=== PATIENT | female | born 1990 ===

== ENCOUNTER 2021-11-01 22:55 | Outpatient (CLI) | payer MEDICAID ==
[2021-11-01] MEDS ORDERED: LACTATED RINGERS 500 ML IV ONE (23:07)
[2021-11-01 23:40] LABS: Hematocrit 31.5 % (30.3-42.9); Hemoglobin 11.3 gm/dl (10.1-14.3); Mean Corpuscular HGB Conc 36 % (30-34); Mean Corpuscular Volume 82 fl (79-97); Platelet Count 191 K/mm3 (140-440); Red Blood Count 3.84 M/mm3 (3.65-5.03); Red Cell Distribution Width 13.9 % (13.2-15.2)
[2021-11-01 23:49] LABS: Bacteria,Urine 1+ /HPF (Negative); Bilirubin,Urine NEG (Negative); Blood,Urine NEG (Negative); Calcium Oxalate Crystals,Urine 2+; Color,Urine Yellow (Yellow); Mucus,Urine 2+ /HPF
[2021-11-02 00:12] LABS: Alanine Aminotransferase 12 units/L (7-56)
[2021-11-02] MEDS ORDERED: LACTATED RINGERS 1,000 ML ONE (01:35)
[2021-11-02] MEDS ORDERED: ACETAMINOPHEN 500 MG TAB PO ONE (02:11)
[2021-11-02] MEDS ORDERED: METOCLOPRAMIDE 10 MG/2 ML INJ IV ONE (02:11)
[2021-11-02] MEDS ORDERED: BICITRA ORAL LIQD 30ML PO ONE (02:11)
[2021-11-02 02:18] VITALS: BP 146/85
== END 2021-11-02 02:56 | disposition home or self-care (01) ==
LOC: TRG 22:55 → APU 23:44 → TRG 11-02 02:56
PROVIDERS: ATTEND Obstetrics & Gynecology
DX: O26.893 Other specified pregnancy related conditions, third trimester (principal); R10.10 Upper abdominal pain, unspecified; O13.3 Gestational [pregnancy-induced] hypertension without significant proteinuria, third trimester; Z3A.35 35 weeks gestation of pregnancy
CPT/HCPCS: 36415; 59025; 81001; 82565; 83615; 84450; 84460; 84550; 85027; 96365; 96366; J2765; 96374